=== PATIENT | male | born 1950 | race African-American/Black ===

== ENCOUNTER 2020-04-06 13:29 | Emergency (ER) | payer MEDICARE, MEDICAID ==
[~2020-04-06] VITALS: Ht 185.4 cm; Wt 58.0 kg
[~2020-04-06 13:29] MED LIST: ASPI-1158; LISI1TAB11; OLAN15TA3; SIMV20TA2
[2020-04-06 15:30] VITALS: BP 118/76
[2020-04-06 15:31] LABS: BASOPHILS % 0.4 % (0.0-2.0); EOSINOPHILS % 0.3 % (0.0-5.0); HEMATOCRIT. 42.2 % (42.0-52.0); HEMOGLOBIN. 14.1 g/dL (14.0-18.0); LYMPHOCYTES % 30.6 % (20.0-50.0); MEAN CORPUSCULAR HEMOGLOBIN 31.7 pg (28.0-32.0); MEAN CORPUSCULAR VOLUME 94.9 fL (80.0-94.0); MEAN PLATELET VOLUME 9.6 fl (7.4-10.4); MONOCYTES % 12.8 % (2.0-8.0); NEUTROPHILS % 55.9 % (40.0-76.0); PLATELET 217 x1000/uL (130-400); RED BLOOD CELL COUNT 4.45 mill/uL (4.7-6.1); RED CELL DISTRIBUTION WIDTH 12.3 % (11.6-14.6)
[2020-04-06 15:35] LABS: CHLORIDE 105 mEq/L (98-107)
== END 2020-04-06 16:10 | disposition left against medical advice (07) ==
LOC: ER 13:50
DX: R07.89 Other chest pain (principal); F17.200 Nicotine dependence, unspecified, uncomplicated; Z79.82 Long term (current) use of aspirin
CPT/HCPCS: 36415; 80053; 83880; 84484; 85025; 93005; 99285

== ENCOUNTER 2020-07-11 18:14 | Inpatient (IN) | payer MEDICARE, MEDICAID ==
[~2020-07-11] VITALS: Ht 188 cm; Wt 79.4 kg
[~2020-07-11 18:14] MED LIST changes: -ASPI-1158; +ASPI-1406
[2020-07-11] MEDS ORDERED: ASPIRIN 81MG TABLET PO ONE (18:45)
[2020-07-11] MEDS ORDERED: NITROGLYCERIN 0.4MG TABLET SL SL PRN (19:00)
[2020-07-11 20:12] LABS: BASOPHILS % 0.6 % (0.0-2.0); EOSINOPHILS % 0.6 % (0.0-5.0); HEMATOCRIT. 34.6 % (42.0-52.0); HEMOGLOBIN. 11.2 g/dL (14.0-18.0); LYMPHOCYTES % 45.2 % (20.0-50.0); MEAN CORPUSCULAR HEMOGLOBIN 31.1 pg (28.0-32.0); MEAN CORPUSCULAR VOLUME 96.3 fL (80.0-94.0); MEAN PLATELET VOLUME 8.7 fl (7.4-10.4); NEUTROPHILS % 42.6 % (40.0-76.0); PLATELET 215 x1000/uL (130-400); RED BLOOD CELL COUNT 3.59 mill/uL (4.7-6.1); RED CELL DISTRIBUTION WIDTH 12.9 % (11.6-14.6)
[2020-07-11 20:19] LABS: CHLORIDE 111 mEq/L (98-107)
[2020-07-11] MEDS ORDERED: FUROSEMIDE 40MG/4ML VIAL IVP ONE (21:00)
[2020-07-11] MEDS ORDERED: HYDROCODONE/ACETAMINOPHEN 5/325MG TABLET PO PRN (21:45)
[2020-07-11] MEDS ORDERED: MAGNESIUM/ALUMINUM HYDROXIDE/SIMETHICONE 30ML UDC PO PRN (23:15)
[2020-07-11] MEDS ORDERED: LORAZEPAM 0.5MG TABLET PO PRN (23:15)
[2020-07-11] MEDS ORDERED: ACETAMINOPHEN 325MG TABLET PO PRN ×2 (23:15)
[2020-07-11] MEDS ORDERED: DIPHENHYDRAMINE 50MG/ML VIAL IV PRN (23:15)
[2020-07-11] MEDS ORDERED: ZOLPIDEM TARTRATE 5MG TABLET PO PRN (23:15)
[2020-07-11] MEDS ORDERED: CLONIDINE 0.1MG TABLET PO PRN (23:15)
[2020-07-11] MEDS ORDERED: KETOROLAC 30MG/ML VIAL IV PRN (23:15)
[2020-07-11] MEDS ORDERED: ONDANSETRON HCL 4MG/2ML INJ IV PRN (23:15)
[2020-07-11] MEDS: ENOXAPARIN 40MG/0.4ML SYR SUBCUT SCH (23:58)
[2020-07-12 03:02] LABS: *BENZODIAZEPINES SCREEN URINE NEGATIVE (NEGATIVE); CANNABINOID URINE SCREEN NEGATIVE (NEGATIVE); PHENCYCLIDINE URINE SCREEN NEGATIVE (NEGATIVE)
[2020-07-12 03:03] LABS: *AMPHETAMINES SCREEN URINE NEGATIVE (NEGATIVE); *BARBITURATES SCREEN URINE NEGATIVE (NEGATIVE); *COCAINE SCREEN URINE NEGATIVE (NEGATIVE); METHADONE URINE SCREEN NEGATIVE (NEGATIVE); OPIATES URINE SCREEN NEGATIVE (NEGATIVE)
[2020-07-12] MEDS: SODIUM CHLORIDE 0.9% INJ 3ML FLUSH IVF SCH ×3 (06:15→21:19)
[2020-07-12] MEDS: OLANZAPINE 10MG TABLET PO SCH ×2 (08:08→18:01)
[2020-07-12 09:16] LABS: BASOPHILS % 0.9 % (0.0-2.0); EOSINOPHILS % 1.1 % (0.0-5.0); HEMATOCRIT. 32.4 % (42.0-52.0); HEMOGLOBIN. 10.6 g/dL (14.0-18.0); LYMPHOCYTES % 46.5 % (20.0-50.0); MEAN CORPUSCULAR HEMOGLOBIN 31.7 pg (28.0-32.0); MEAN CORPUSCULAR VOLUME 96.4 fL (80.0-94.0); MEAN PLATELET VOLUME 8.5 fl (7.4-10.4); MONOCYTES % 11.7 % (2.0-8.0); NEUTROPHILS % 39.8 % (40.0-76.0); PLATELET 185 x1000/uL (130-400); RED BLOOD CELL COUNT 3.36 mill/uL (4.7-6.1); RED CELL DISTRIBUTION WIDTH 12.9 % (11.6-14.6)
[2020-07-12 09:18] LABS: CHLORIDE 109 mEq/L (98-107)
[2020-07-12 09:24] LABS: PHOSPHORUS 3.4 mg/dL (2.5-4.9)
[2020-07-12 12:15] VITALS: BP 135/80
[2020-07-12] MEDS: CLOPIDOGREL 75MG TABLET PO SCH (14:53)
[2020-07-12 16:00] VITALS: BP 130/78
[2020-07-12 17:22] LABS: T4 FREE 0.97 ng/dL (0.76-1.46)
[2020-07-12 20:00] VITALS: BP 152/131
[2020-07-12] MEDS: ENOXAPARIN 40MG/0.4ML SYR SUBCUT SCH (20:19)
[2020-07-13] VITALS: BP 133/82
[2020-07-13 02:31] LABS: CREATINE KINASE MB FRACTION 1.3 ng/mL (0.5-3.6)
[2020-07-13 04:00] VITALS: BP 166/72
[2020-07-13] MEDS: CLOPIDOGREL 75MG TABLET PO SCH (08:58)
[2020-07-13] MEDS: OLANZAPINE 10MG TABLET PO SCH (08:58)
[2020-07-13] MEDS ORDERED: ASPIRIN 81MG TABLET PO SCH (09:00)
[2020-07-13] MEDS ORDERED: REGADENOSON 0.4 MG/5 ML IV ONE (09:45)
== END 2020-07-13 14:52 | disposition left against medical advice (07) | DRG 342 ==
LOC: ER 18:14 → MICUSO 23:54 → 8WST 07-12 12:10
PROVIDERS: ADMIT Internal Medicine; ATTEND Internal Medicine
DX: S92.331A Displaced fracture of third metatarsal bone, right foot, initial encounter for closed fracture (principal); S92.321A Displaced fracture of second metatarsal bone, right foot, initial encounter for closed fracture; F20.9 Schizophrenia, unspecified; F17.200 Nicotine dependence, unspecified, uncomplicated; E78.5 Hyperlipidemia, unspecified; R77.8 Other specified abnormalities of plasma proteins; Z53.29 Procedure and treatment not carried out because of patient's decision for other reasons; X58.XXXA Exposure to other specified factors, initial encounter; Z20.822 Contact with and (suspected) exposure to COVID-19; Z59.0 Homelessness; Z79.82 Long term (current) use of aspirin; Z79.899 Other long term (current) drug therapy; Z71.6 Tobacco abuse counseling; Y93.89 Activity, other specified; Y92.89 Other specified places as the place of occurrence of the external cause; Y99.8 Other external cause status; I11.0 Hypertensive heart disease with heart failure; I50.21 Acute systolic (congestive) heart failure; M94.0 Chondrocostal junction syndrome [Tietze]; E44.1 Mild protein-calorie malnutrition; Z68.22 Body mass index [BMI] 22.0-22.9, adult
CPT/HCPCS: 36415; 71045; 73100; 73620; 80053; 80061; 80305; 82550; 82553; 83036; 83735; 83880; 84100; 84439; 84443; 84484; 85025; 85379; 87426; 93005; 93306; 93970; 99285; J1650; J1885; J1940

== ENCOUNTER 2020-09-06 02:49 | Emergency (ER) | payer MEDICARE, MEDICAID ==
[~2020-09-06] VITALS: Ht 190.5 cm; Wt 91.0 kg
[2020-09-06] MEDS ORDERED: ASPIRIN 81MG TABLET PO ONE (03:15)
[2020-09-06 03:28] LABS: BASOPHILS % 0.9 % (0.0-2.0); EOSINOPHILS % 1.1 % (0.0-5.0); HEMATOCRIT. 35.4 % (42.0-52.0); HEMOGLOBIN. 11.8 g/dL (14.0-18.0); LYMPHOCYTES % 37.2 % (20.0-50.0); MEAN CORPUSCULAR HEMOGLOBIN 32.2 pg (28.0-32.0); MEAN CORPUSCULAR VOLUME 96.8 fL (80.0-94.0); MEAN PLATELET VOLUME 8.7 fl (7.4-10.4); MONOCYTES % 8.8 % (2.0-8.0); PLATELET 177 x1000/uL (130-400); RED BLOOD CELL COUNT 3.65 mill/uL (4.7-6.1); RED CELL DISTRIBUTION WIDTH 13.3 % (11.6-14.6)
[2020-09-06] MEDS: NITROGLYCERIN 0.4MG TABLET SL SL PRN ×2 (03:28→03:42)
[2020-09-06 03:32] LABS: CHLORIDE 107 mEq/L (98-107)
[2020-09-06 06:44] VITALS: BP 145/78
== END 2020-09-06 07:15 | disposition left against medical advice (07) ==
LOC: ER 02:49 → ENRESERV 06:29 → CANRESERV 06:29 → CANBEDREQ 06:49 → ER 07:15
DX: R07.89 Other chest pain (principal); I10 Essential (primary) hypertension; F20.9 Schizophrenia, unspecified; R94.39 Abnormal result of other cardiovascular function study; Z85.038 Personal history of other malignant neoplasm of large intestine; Z79.82 Long term (current) use of aspirin; Z88.0 Allergy status to penicillin
CPT/HCPCS: 36415; 71045; 80053; 83880; 84484; 85025; 93005; 99285; Z7610

== ENCOUNTER 2020-12-25 15:39 | Emergency (ER) | payer MEDICARE, MEDICAID ==
[~2020-12-25] VITALS: Ht 182.9 cm; Wt 87.0 kg
[2020-12-25 17:35] VITALS: BP 146/82
[2020-12-25] MEDS ORDERED: TETANUS AND DIPHTHERIA TOX/PF 0.5ML SYR (ADULT) IM ONE (20:15)
[2020-12-25] MEDS ORDERED: SULF1TAB48 MT (21:03)
== END 2020-12-25 21:51 | disposition home or self-care (01) ==
LOC: ER 15:39
DX: S00.81XA Abrasion of other part of head, initial encounter (principal); F14.10 Cocaine abuse, uncomplicated; F15.10 Other stimulant abuse, uncomplicated; F11.10 Opioid abuse, uncomplicated; M79.602 Pain in left arm; M79.601 Pain in right arm; I10 Essential (primary) hypertension; Z88.0 Allergy status to penicillin; Z98.890 Other specified postprocedural states; Z86.59 Personal history of other mental and behavioral disorders; Y04.0XXA Assault by unarmed brawl or fight, initial encounter; Y93.89 Activity, other specified; Y92.89 Other specified places as the place of occurrence of the external cause; Y99.8 Other external cause status
CPT/HCPCS: 29105; 70486; 73090; 73110; 90714; 99285

== ENCOUNTER 2021-01-15 21:52 | Emergency (ER) | payer MEDICARE, MEDICAID ==
[~2021-01-15] VITALS: Ht 182.9 cm; Wt 85.0 kg
[~2021-01-15 21:52] MED LIST changes: +SULF1TAB48 MT
[2021-01-16 03:51] LABS: BASOPHILS % 0.9 % (0.0-2.0); EOSINOPHILS % 2.3 % (0.0-5.0); HEMATOCRIT. 37.6 % (42.0-52.0); HEMOGLOBIN. 12.3 g/dL (14.0-18.0); LYMPHOCYTES % 45.7 % (20.0-50.0); MEAN CORPUSCULAR HEMOGLOBIN 31.5 pg (28.0-32.0); MEAN CORPUSCULAR VOLUME 96.5 fL (80.0-94.0); MONOCYTES % 11.7 % (2.0-8.0); NEUTROPHILS % 39.4 % (40.0-76.0); PLATELET 268 x1000/uL (130-400); RED CELL DISTRIBUTION WIDTH 12.7 % (11.6-14.6)
[2021-01-16 03:55] LABS: CHLORIDE 106 mEq/L (98-107)
[2021-01-16] MEDS ORDERED: ASPIRIN 81MG TABLET PO ONE (05:30)
[2021-01-16] MEDS ORDERED: MAGNESIUM/ALUMINUM HYDROXIDE/SIMETHICONE 30ML UDC PO PRN (06:15)
[2021-01-16] MEDS ORDERED: DOCUSATE SODIUM 100MG CAPSULE PO PRN (06:15)
[2021-01-16] MEDS ORDERED: CLONIDINE 0.1MG TABLET PO PRN (06:15)
[2021-01-16] MEDS ORDERED: ONDANSETRON HCL 4MG/2ML INJ IV PRN (06:15)
[2021-01-16] MEDS ORDERED: HYDROCODONE/ACETAMINOPHEN 5/325MG TABLET PO PRN (06:15)
[2021-01-16] MEDS ORDERED: GUAIFENESIN 200MG/10ML SUGAR FREE UDC PO PRN (06:15)
[2021-01-16] MEDS ORDERED: ACETAMINOPHEN 325MG TABLET PO PRN (06:15)
[2021-01-16] MEDS ORDERED: LISINOPRIL 20MG TABLET PO SCH (07:30)
[2021-01-16] MEDS ORDERED: AMLODIPINE 10MG TABLET PO SCH (07:30)
[2021-01-16] MEDS ORDERED: ENOXAPARIN 40MG/0.4ML SYR SUBCUT SCH (08:00)
[2021-01-16 09:25] VITALS: BP 164/114
[2021-01-17] MEDS ORDERED: ASPIRIN 81MG EC TABLET PO SCH (09:00)
== END 2021-01-16 10:08 | disposition left against medical advice (07) ==
LOC: ER 21:52 → CANBEDREQ 01-16 09:44 → ER 01-16 10:08
DX: R07.89 Other chest pain (principal); I10 Essential (primary) hypertension; F20.9 Schizophrenia, unspecified; Z79.82 Long term (current) use of aspirin
CPT/HCPCS: 36415; 71045; 80053; 83880; 84484; 85025; 93005; 93970; 96372; 99285; J1650

== ENCOUNTER 2021-04-27 23:05 | Inpatient (IN) | payer MEDICARE, MEDICAID ==
[~2021-04-27] VITALS: Ht 185.4 cm; Wt 90.8 kg
[2021-04-28 01:13] LABS: BASOPHILS % 0.8 % (0.0-2.0); EOSINOPHILS % 0.6 % (0.0-5.0); HEMATOCRIT. 39.2 % (42.0-52.0); LYMPHOCYTES % 44.5 % (20.0-50.0); MEAN CORPUSCULAR HEMOGLOBIN 31.8 pg (28.0-32.0); MEAN CORPUSCULAR VOLUME 96.1 fL (80.0-94.0); MEAN PLATELET VOLUME 8.4 fl (7.4-10.4); MONOCYTES % 7.6 % (2.0-8.0); NEUTROPHILS % 46.5 % (40.0-76.0); PLATELET 199 x1000/uL (130-400); RED BLOOD CELL COUNT 4.08 mill/uL (4.7-6.1); RED CELL DISTRIBUTION WIDTH 13.2 % (11.6-14.6)
[2021-04-28 01:15] LABS: CHLORIDE 108 mEq/L (98-107)
[2021-04-28] MEDS ORDERED: ACETAMINOPHEN 325MG TABLET PO PRN (08:15)
[2021-04-28] MEDS ORDERED: CLONIDINE 0.1MG TABLET PO PRN (08:15)
[2021-04-28] MEDS ORDERED: MORPHINE SULFATE 2 MG/ML CPJ (NOT FOR IM USE) IV PRN (08:15)
[2021-04-28] MEDS ORDERED: HYDROCODONE/ACETAMINOPHEN 5/325MG TABLET PO PRN (08:15)
[2021-04-28] MEDS ORDERED: GUAIFENESIN 200MG/10ML SUGAR FREE UDC PO PRN (08:15)
[2021-04-28] MEDS ORDERED: ONDANSETRON HCL 4MG/2ML INJ IV PRN (08:15)
[2021-04-28] MEDS ORDERED: MAGNESIUM/ALUMINUM HYDROXIDE/SIMETHICONE 30ML UDC PO PRN (08:15)
[2021-04-28] MEDS ORDERED: DOCUSATE SODIUM 100MG CAPSULE PO PRN (08:15)
[2021-04-28] MEDS ORDERED: NALOXONE HCL 0.4MG/ML VIAL IV PRN (08:30)
[2021-04-28 10:15] VITALS: BP 136/79
[2021-04-28 11:00] VITALS: BP 136/79
[2021-04-28] MEDS: ENOXAPARIN 40MG/0.4ML SYR SUBCUT SCH (11:23)
[2021-04-28] MEDS: AMLODIPINE 10MG TABLET PO SCH (11:24)
[2021-04-28] MEDS: ASPIRIN 81MG EC TABLET PO SCH (11:24)
[2021-04-28 12:00] VITALS: BP 138/68
[2021-04-28] MEDS ORDERED: OLANZAPINE 10MG TABLET PO SCH (13:00)
[2021-04-28 16:00] VITALS: BP 140/80
[2021-04-28 16:54] LABS: CREATINE KINASE 103 IU/L (39-308)
[2021-04-28 16:55] LABS: CREATINE KINASE MB FRACTION 2.5 ng/mL (0.5-3.6)
[2021-04-28 20:00] VITALS: BP 138/77
[2021-04-28] MEDS: OLANZAPINE 5MG TABLET PO SCH (20:49)
[2021-04-29 00:48] VITALS: BP 130/70
[2021-04-29 04:00] VITALS: BP 134/67
[2021-04-29 06:23] LABS: BASOPHILS % 0.6 % (0.0-2.0); EOSINOPHILS % 1.3 % (0.0-5.0); HEMATOCRIT. 37.7 % (42.0-52.0); HEMOGLOBIN. 12.4 g/dL (14.0-18.0); LYMPHOCYTES % 50.8 % (20.0-50.0); MEAN CORPUSCULAR HEMOGLOBIN 31.8 pg (28.0-32.0); MEAN CORPUSCULAR VOLUME 96.8 fL (80.0-94.0); MEAN PLATELET VOLUME 8.8 fl (7.4-10.4); MONOCYTES % 14.6 % (2.0-8.0); NEUTROPHILS % 32.7 % (40.0-76.0); PLATELET 169 x1000/uL (130-400); RED CELL DISTRIBUTION WIDTH 13.3 % (11.6-14.6)
[2021-04-29 07:47] LABS: CHLORIDE 109 mEq/L (98-107)
[2021-04-29 07:55] LABS: CREATINE KINASE 64 IU/L (39-308)
[2021-04-29 07:58] LABS: HDL CHOLESTEROL 83 mg/dL (40-59)
[2021-04-29 08:00] VITALS: BP 172/127
[2021-04-29 08:11] LABS: CREATINE KINASE MB FRACTION 1.9 ng/mL (0.5-3.6)
[2021-04-29 08:13] LABS: LDL CHOLESTEROL 51 mg/dL (5-100)
[2021-04-29] MEDS: ASPIRIN 81MG EC TABLET PO SCH (08:28)
[2021-04-29] MEDS: AMLODIPINE 10MG TABLET PO SCH (08:28)
[2021-04-29] MEDS: ENOXAPARIN 40MG/0.4ML SYR SUBCUT SCH (08:29)
[2021-04-29 12:00] VITALS: BP 123/83
[2021-04-29 16:00] VITALS: BP 139/92
[2021-04-29 20:00] VITALS: BP 130/68
[2021-04-29] MEDS: HYDRALAZINE HCL 50MG TABLET PO SCH (21:18)
[2021-04-29] MEDS: OLANZAPINE 5MG TABLET PO SCH (21:18)
[2021-04-30] VITALS: BP 114/68
[2021-04-30 04:00] VITALS: BP 120/74
[2021-04-30 08:00] VITALS: BP 146/78
[2021-04-30] MEDS: ASPIRIN 81MG EC TABLET PO SCH (08:44)
[2021-04-30] MEDS: HYDRALAZINE HCL 50MG TABLET PO SCH (08:44)
[2021-04-30] MEDS: ENOXAPARIN 40MG/0.4ML SYR SUBCUT SCH (08:45)
[2021-04-30] MEDS: AMLODIPINE 10MG TABLET PO SCH (08:46)
[2021-04-30 12:00] VITALS: BP 134/71
[2021-04-30 16:00] VITALS: BP 140/66
== END 2021-04-30 20:37 | disposition left against medical advice (07) | DRG 198 ==
LOC: ER 23:05 → ENRESERV 04-28 07:41 → 7EST 04-28 11:12
PROVIDERS: ADMIT Hospitalist; ATTEND Hospitalist
DX: I24.9 Acute ischemic heart disease, unspecified (principal); R65.10 Systemic inflammatory response syndrome (SIRS) of non-infectious origin without acute organ dysfunction; I10 Essential (primary) hypertension; I25.10 Atherosclerotic heart disease of native coronary artery without angina pectoris; I16.0 Hypertensive urgency; I25.2 Old myocardial infarction; Z82.49 Family history of ischemic heart disease and other diseases of the circulatory system; Z85.46 Personal history of malignant neoplasm of prostate; Z88.0 Allergy status to penicillin; Z79.82 Long term (current) use of aspirin; Z79.899 Other long term (current) drug therapy; Z59.00 Homelessness unspecified
CPT/HCPCS: 36415; 71045; 80053; 80061; 82550; 82553; 83880; 84484; 85025; 93005; 93306; 93970; 99285; J1650

== ENCOUNTER 2021-06-04 02:30 | Inpatient (IN) | payer MEDICARE, MEDICAID ==
[~2021-06-04] VITALS: Ht 185.4 cm; Wt 94.5 kg
[2021-06-04] MEDS ORDERED: SODIUM CHLORIDE 0.9% 1,000 ML IV ONE (03:00)
[2021-06-04] MEDS ORDERED: LORAZEPAM 2MG/ML CPJ IV ONE (03:30)
[2021-06-04] MEDS ORDERED: ASPIRIN 325MG TABLET PO ONE (03:30)
[2021-06-04 03:39] LABS: BASOPHILS % 0.8 % (0.0-2.0); EOSINOPHILS % 0.8 % (0.0-5.0); HEMATOCRIT. 40.3 % (42.0-52.0); HEMOGLOBIN. 13.3 g/dL (14.0-18.0); LYMPHOCYTES % 44.6 % (20.0-50.0); MEAN CORPUSCULAR HEMOGLOBIN 31.8 pg (28.0-32.0); MEAN CORPUSCULAR VOLUME 96.3 fL (80.0-94.0); MEAN PLATELET VOLUME 8.7 fl (7.4-10.4); MONOCYTES % 10.6 % (2.0-8.0); NEUTROPHILS % 43.2 % (40.0-76.0); PLATELET 256 x1000/uL (130-400); RED BLOOD CELL COUNT 4.18 mill/uL (4.7-6.1); RED CELL DISTRIBUTION WIDTH 13.1 % (11.6-14.6)
[2021-06-04 03:45] LABS: CHLORIDE 106 mEq/L (98-107)
[2021-06-04 03:51] LABS: ETHANOL BLOOD < 10 mg/dL
[2021-06-04] MEDS ORDERED: IOHEXOL-350 100 ML BOTTLE ONE (05:10)
[2021-06-04] MEDS ORDERED: METOPROLOL TARTRATE 5MG/5ML VIAL IV SCH (06:30)
[2021-06-04 07:25] LABS: CLARITY URINE CLEAR (CLEAR); COLOR URINE DARK YELLOW (YELLOW); KETONES URINE TRACE (NEGATIVE); LEUKOCYTE ESTERASE URINE TRACE (NEGATIVE); NITRITE URINE NEGATIVE (NEGATIVE); OCCULT BLOOD URINE NEGATIVE (NEGATIVE); PH URINE 5.5 (4.5-8.0); PROTEIN URINE 2+ (NEGATIVE)
[2021-06-04 07:46] LABS: CANNABINOID URINE SCREEN PRESUMTIVE POSITIVE (NEGATIVE); METHADONE URINE SCREEN NEGATIVE (NEGATIVE); OPIATES URINE SCREEN NEGATIVE (NEGATIVE); PHENCYCLIDINE URINE SCREEN NEGATIVE (NEGATIVE)
[2021-06-04 07:47] LABS: *AMPHETAMINES SCREEN URINE NEGATIVE (NEGATIVE); *BARBITURATES SCREEN URINE NEGATIVE (NEGATIVE); *BENZODIAZEPINES SCREEN URINE NEGATIVE (NEGATIVE); *COCAINE SCREEN URINE NEGATIVE (NEGATIVE)
[2021-06-04] MEDS ORDERED: ONDANSETRON HCL 4MG/2ML INJ IV PRN (09:00)
[2021-06-04] MEDS ORDERED: LORAZEPAM 2MG/ML CPJ IV PRN (09:00)
[2021-06-04] MEDS ORDERED: FUROSEMIDE 40MG TABLET PO NR (09:00)
[2021-06-04] MEDS: METOPROLOL TARTRATE 50MG TABLET PO SCH ×2 (10:22→21:14)
[2021-06-04] MEDS: THIAMINE HCL 100MG TABLET PO SCH (10:22)
[2021-06-05] VITALS (17 sets, daily range): BP systolic 95–152; BP diastolic 65–94
[2021-06-05 06:37] LABS: BASOPHILS % 0.7 % (0.0-2.0); EOSINOPHILS % 1.3 % (0.0-5.0); HEMATOCRIT. 31.9 % (42.0-52.0); HEMOGLOBIN. 10.4 g/dL (14.0-18.0); LYMPHOCYTES % 26.7 % (20.0-50.0); MEAN CORPUSCULAR HEMOGLOBIN 31.8 pg (28.0-32.0); MEAN CORPUSCULAR VOLUME 97.3 fL (80.0-94.0); MEAN PLATELET VOLUME 8.8 fl (7.4-10.4); MONOCYTES % 13.4 % (2.0-8.0); NEUTROPHILS % 57.9 % (40.0-76.0); PLATELET 198 x1000/uL (130-400); RED BLOOD CELL COUNT 3.28 mill/uL (4.7-6.1); RED CELL DISTRIBUTION WIDTH 13.2 % (11.6-14.6)
[2021-06-05 07:36] LABS: CHLORIDE 109 mEq/L (98-107)
[2021-06-05] MEDS: FUROSEMIDE 40MG/4ML VIAL IVP SCH (08:20)
[2021-06-05] MEDS: METOPROLOL TARTRATE 50MG TABLET PO SCH ×2 (08:22→22:42)
[2021-06-05] MEDS: THIAMINE HCL 100MG TABLET PO SCH (08:22)
[2021-06-05] MEDS: ENOXAPARIN 40MG/0.4ML SYR SUBCUT SCH (11:51)
[2021-06-06] VITALS (12 sets, daily range): BP systolic 118–155; BP diastolic 66–97
[2021-06-06] MEDS ORDERED: POTA10CA42 MT (07:48)
[2021-06-06] MEDS ORDERED: LOSA50TA41 MT (07:48)
[2021-06-06] MEDS ORDERED: FURO-151 MT (07:48)
[2021-06-06] MEDS ORDERED: CARV12.545 MT (07:48)
[2021-06-06] MEDS: METOPROLOL TARTRATE 50MG TABLET PO SCH ×2 (08:40→22:03)
[2021-06-06] MEDS: THIAMINE HCL 100MG TABLET PO SCH (08:40)
[2021-06-06] MEDS: FUROSEMIDE 40MG/4ML VIAL IVP SCH (08:45)
[2021-06-06] MEDS: ENOXAPARIN 40MG/0.4ML SYR SUBCUT SCH (11:19)
[2021-06-07] VITALS: BP 137/69
[2021-06-07 04:00] VITALS: BP 139/87
[2021-06-07 08:00] VITALS: BP 155/98
[2021-06-07] MEDS: THIAMINE HCL 100MG TABLET PO SCH (08:47)
[2021-06-07] MEDS: FUROSEMIDE 40MG/4ML VIAL IVP SCH (08:47)
[2021-06-07] MEDS: METOPROLOL TARTRATE 50MG TABLET PO SCH (08:47)
[2021-06-07] MEDS: ENOXAPARIN 40MG/0.4ML SYR SUBCUT SCH (11:00)
== END 2021-06-07 12:57 | disposition left against medical advice (07) | DRG 194 ==
LOC: ER 02:30 → 3WST 06:12 → EDBEDREQSVC 10:21 → EDBEDREQTM 20:41 → ENRESERV 23:30 → 3WST 06-05 01:30 → 6WST 06-06 16:50
PROVIDERS: ADMIT Internal Medicine; ATTEND Internal Medicine
DX: I11.0 Hypertensive heart disease with heart failure (principal); N17.0 Acute kidney failure with tubular necrosis; K85.10 Biliary acute pancreatitis without necrosis or infection; E44.1 Mild protein-calorie malnutrition; I50.23 Acute on chronic systolic (congestive) heart failure; D64.9 Anemia, unspecified; Z60.2 Problems related to living alone; F10.10 Alcohol abuse, uncomplicated; F20.9 Schizophrenia, unspecified; I25.2 Old myocardial infarction; Z59.00 Homelessness unspecified; Z85.46 Personal history of malignant neoplasm of prostate; Z88.0 Allergy status to penicillin; Z79.82 Long term (current) use of aspirin; Z79.899 Other long term (current) drug therapy; Z71.41 Alcohol abuse counseling and surveillance of alcoholic; Z20.822 Contact with and (suspected) exposure to COVID-19; Z68.27 Body mass index [BMI] 27.0-27.9, adult
CPT/HCPCS: 36415; 71045; 71275; 74176; 80048; 80053; 80305; 80320; 81003; 83605; 83880; 84484; 85025; 85379; 93005; 93306; 99291; C9803; J1650; J1940; J2060; J3490; J7030; Q9967; U0003; U0005; G0480